=== PATIENT | female | born 1965 | race Caucasian/White ===

== ENCOUNTER 2017-08-08 11:04 | Inpatient (IN) | payer BC ==
[~2017-08-08] VITALS: Ht 167.6 cm; Wt 56.3 kg
[2017-08-08 11:50] LABS: EOSINOPHIL (%) 0 % (0-5); HEMATOCRIT 40.7 % (36.0-46.0); IMMATURE GRANULOCYTE (%) 0.4 % (0.0-0.7); IMMATURE GRANULOCYTE COUNT 0.1 K/uL; INSTRUMENT ABS NEUTROPHIL CT 12.7 K/uL; LYMPHOCYTE COUNT 0.9 K/uL (1.0-2.8); MCH 32.2 PG (29.0-34.0); MCHC 33.9 G/DL (30.0-36.0); MCV 94.9 FL (83-99); MONOCYTE (%) 3.1 % (3-12); MONOCYTE COUNT 0.4 K/uL (0-0.8); NEUTROPHIL (%) 90.2 % (45-76); NEUTROPHIL COUNT 12.7 K/uL (1.8-6.4); PLATELET COUNT 237 K/uL (156-360); RBC DIS.WIDTH-CV 11.9 % (11.8-14.6); RBC DIS.WIDTH-SD 40.6 % (39-53); RED BLOOD COUNT 4.29 M/uL (3.80-5.20); WHITE BLOOD COUNT 14.1 K/uL (4.1-10.2)
[2017-08-08 11:56] LABS: INTER. NORMALIZED RATIO 0.9; PROTHROMBIN TIME 10.3 SEC (10.2-12.9)
[2017-08-08 11:59] LABS: PTT 25.1 SEC (25-37)
[2017-08-08 12:02] LABS: CHLORIDE 102 mEq/L (99-109); POTASSIUM 4.3 mEq/L (3.7-5.4); SODIUM 137 mEq/L (136-147)
[2017-08-08 12:04] LABS: GLUCOSE 103 mg/dL (70-99)
[2017-08-08 12:05] LABS: ANION GAP 11 MEQ/L (2-14)
[2017-08-08 12:07] LABS: SERUM ETHYL ALCOHOL 69 mg/dL
[2017-08-08 12:08] LABS: GFR ESTIMATE (CALCULATED) > 59 mL/min/
[2017-08-08 12:09] LABS: UREA NITROGEN (BUN) 9 mg/dL (9-23)
[2017-08-08 12:11] LABS: SALICYLATE < 5.0 MG/DL (15-30)
[2017-08-08 12:12] LABS: TROP-I INTERPRETATION NEGATIVE; TROPONIN-I < 0.01 ng/mL (0.0-0.30)
[2017-08-08 13:20] LABS: ADD MIUA? NO; BILIRUBIN NEGATIVE; BLOOD NEGATIVE; COLOR STRAW ((YELLOW)); GLUCOSE (STRIP) NEGATIVE; KETONES NEGATIVE; LEUKOCYTES NEGATIVE; NITRITE NEGATIVE; PROTEIN (STRIP) NEGATIVE; SPECIFIC GRAVITY 1.005 (1.000-1.030); UCUL ADDED? NO; UROBILINOGEN 0.2 MG/DL (0.2-1.0)
[2017-08-08 13:23] LABS: ADD MEDTOX COMMENT Y; AMPHETAMINE NEGATIVE (500 ng/mL); BARBITURATES NEGATIVE (200 ng/mL); BENZODIAZEPINES PRESUMPTIVE POSITIVE (150 ng/mL); COCAINE NEGATIVE (150 ng/mL); INTERNAL CONTROLS VALID? YES; METHADONE NEGATIVE (200 ng/mL); METHAMPHETAMINE NEGATIVE (500 ng/mL); OPIATES (MORPHINE) NEGATIVE (100 ng/mL); OXYCODONE NEGATIVE (100 ng/mL); PHENCYCLIDINE NEGATIVE (25 ng/mL); PROPOXYPHENE NEGATIVE (300 ng/mL); THC CANNABINOIDS NEGATIVE (50 ng/mL); TRICYCLIC ANTIDEPRESSANTS NEGATIVE (300 ng/mL)
[2017-08-08 14:40] LABS: BENZODIAZEPINES, URINE SCREEN POSITIVE (200 ng/mL)
[2017-08-08 17:50] VITALS: BP 129/85
== END 2017-08-08 17:41 | disposition left against medical advice (07) | DRG 918 ==
LOC: EME 11:04 → EDOF 14:08 → ENRESERV 14:09 → EDOF 17:41
PROVIDERS: Emergency Medicine
DX: T42.4X1A Poisoning by benzodiazepines, accidental (unintentional), initial encounter (principal); T51.0X1A Toxic effect of ethanol, accidental (unintentional), initial encounter
CPT/HCPCS: 70450; 71010; 80048; 81003; 83735; 84484; 84999; 85025; 85610; 85730; 87040; 90837; 93005; 99281; 99284; G0480; J7030